=== PATIENT | male | born 1990 | race Caucasian/White ===

== ENCOUNTER 2020-01-22 08:20 | Emergency (ER) | payer MEDICAID, OTHER ==
[2020-01-22] MEDS ORDERED: Aspirin 81 MG Tab.Chew PO ONE (08:47)
--- NOTE | 2020-01-22 08:49 | EDM.PDOC ---
ED HPI GENERAL MEDICAL PROBLEM - General Chief Complaint: General Stated Complaint: CHEST PAIN Time Seen by Provider: 01/22/20 08:50 Source of Information: Reports: Patient, Old Records, RN History Limitations: Reports: No Limitations - History of Present Illness INITIAL COMMENTS - FREE TEXT/NARRATIVE: 30 yo male here with intermittent fleeting L sided chest pains over the past 10 days. At one point the pain went down his left arm. Sometimes the pain is worse with deep breathing. Not related to exertion. No personal or immediate family with CAD. Quit smoking a few yrs ago and also quit ETOH. No SOB, nausea or diaphoresis. No calf pain or unilateral leg swelling. Called the clinic and was referred to the ED. Has noticed going back even further in time intermittent episodes of heart palpitations with a heart rate up into the 130's. Is currently on no meds. Has eaten within 2 hrs of coming to the ED today. Onset: Sudden Onset Date: 01/12/20 Duration: Intermittent Location: Reports: Chest Quality: Reports: Sharp Severity: Moderate Improves with: Reports: None Worsens with: Reports: Breathing (deep) Context: Reports: Other (See HPI) Associated Symptoms: Reports: Chest Pain. Denies: Cough, Diaphoresis, Fever/Chills, Nausea/Vomiting, Rash, Shortness of Breath, Syncope Treatments [employer] [place]: Reports: Other (see below) (none) - Related Data Allergies Allergy/AdvReac Type Severity Reaction Status Date / Time No Known Allergies Allergy Verified 01/22/20 08:40 Home Meds: Home Meds Meloxicam 15 mg PO DAILY #15 tablet 01/22/20 [Rx] Metoprolol Succinate [Toprol XL 50mg] 50 mg PO BEDTIME #30 tab.er 01/22/20 [Rx] Past Medical History HEENT History: Reports: Other (See Below) Other HEENT History: eustachian tube dysfuction Cardiovascular History: Reports: None Respiratory History: Reports: None Gastrointestinal History: Reports: GERD Other Gastrointestinal History: BLOOD IN STOOL WITH LOWER RECTAL PAIN Genitourinary History: Reports: None Musculoskeletal History: Reports: Fracture, Other (See Below) Other Musculoskeletal History: tendonitis Neurological History: Reports: None Psychiatric History: Reports: Depression, Suicidal Ideation Endocrine/Metabolic History: Reports: None Hematologic History: Reports: None Immunologic History: Reports: None Oncologic (Cancer) History: Reports: None Dermatologic History: Reports: Eczema - Infectious Disease History Infectious Disease History: Reports: None - Past Surgical History HEENT Surgical History: Reports: Naso-Sinus Surgery Social & Family History - Family History Family Medical History: Noncontributory ED ROS GENERAL - Review of Systems Review Of Systems: See Below Constitutional: Reports: No Symptoms HEENT: Reports: No Symptoms Respiratory: Reports: Pleuritic Chest Pain. Denies: Shortness of Breath, Cough, Sputum, Hemoptysis Cardiovascular: Reports: Chest Pain, Palpitations (not related to his intermittent pains). Denies: Claudication, Dyspnea on Exertion, Edema, Lightheadedness, Orthopnea, Syncope GI/Abdominal: Reports: No Symptoms : Reports: No Symptoms Musculoskeletal: Reports: No Symptoms Skin: Reports: No Symptoms Neurological: Reports: No Symptoms Psychiatric: Reports: No Symptoms ED EXAM, GENERAL - Physical Exam Exam: See Below Exam Limited By: No Limitations General Appearance: Alert, WD/WN, No Apparent Distress Eye Exam: Bilateral Eye: Normal Inspection Ears: Normal External Exam, Normal Canal, Hearing Grossly Normal, Normal TMs Ear Exam: Bilateral Ear: Auricle Normal, Canal Normal, TM normal Nose: Normal Inspection, No Blood Throat/Mouth: Normal Inspection, Normal Lips, Normal Oropharynx, Normal Voice, No Airway Compromise Head: Atraumatic, Normocephalic Neck: Normal Inspection Respiratory/Chest: No Respiratory Distress, Lungs Clear, Normal Breath Sounds, No Accessory Muscle Use, Chest Non-Tender Cardiovascular: Regular Rate, Rhythm (92 rate at time of exam), No Edema GI/Abdominal: Soft, Non-Tender, No Distention Back Exam: Normal Inspection. No: CVA Tenderness (R), CVA Tenderness (L) Extremities: Normal Inspection, Normal Range of Motion, Non-Tender, No Pedal Edema. No: Pedal Edema, Leg Pain, Limited Range of Motion Neurological: Alert, Oriented, CN II-XII Intact, Normal Cognition, No Motor/Sensory Deficits Psychiatric: Normal Affect, Normal Mood Skin Exam: Warm, Dry, Intact, Normal Color, No Rash EKG INTERPRETATION EKG Date: 01/22/20 Time: 08:30 Rhythm: NSR Rate (Beats/Min): 103 [place]: LAD-Left [place] Deviation (borderline) P-Wave: Present QRS: Normal ST-T: Normal QT: Normal Comparison: NA - No Prior EKG Course - Vital Signs Last Recorded V/S: Last Vital Signs Temp 36.7 C 01/22/20 08:47 Pulse 88 01/22/20 09:24 Resp 18 01/22/20 09:24 BP 143/91 H 01/22/20 09:24 Pulse Ox 97 01/22/20 09:24 - Orders/Labs/Meds Orders: Active Orders 24 hr Category Date Time Status EKG Documentation Completion [RC] ASDIRECTED Care 01/22/20 08:25 Active Chest 2V [CR] Stat Exams 01/22/20 09:39 Ordered EKG 12 Lead [EK] Routine Ther 01/22/20 08:25 Ordered Labs: Laboratory Tests 01/22/20 01/22/20 01/22/20 Range/Units 08:58 08:58 08:58 D-Dimer, Quantitative < 100 (0.0-400.0) ng/mL Sodium 140 (140-148) mmol/L Potassium 3.7 (3.6-5.2) mmol/L Chloride 102 (100-108) mmol/L Carbon Dioxide 26 (21-32) mmol/L Anion Gap 11.6 (5.0-14.0) mmol/L BUN 11 (7-18) mg/dL Creatinine 1.1 (0.8-1.3) mg/dL Est Cr Clr Drug Dosing 87.81 mL/min Estimated GFR (MDRD) > 60 (>60) Glucose 138 H (74-106) mg/dL Calcium 9.0 (8.5-10.1) mg/dL Troponin I < 0.017 (0.000-0.056) ng/mL Meds: Medications Discontinued Medications Generic Name Dose Route Start Last Admin Trade Name Freq PRN Reason Stop Dose Admin Aspirin 324 mg 01/22/20 08:47 01/22/20 08:53 Aspirin PO 01/22/20 08:48 324 mg ONETIME ONE Administration - Radiology Interpretation Free Text/Narrative:: CXR-neg Departure - Departure Time of Disposition: 10:00 Disposition: Home, Self-Care 01 Condition: Good Clinical Impression: Pleuritic chest pain HTN (hypertension) Qualifiers: Hypertension type: essential hypertension Qualified Code(s): I10 - Essential (primary) hypertension - Discharge Information *PRESCRIPTION DRUG MONITORING PROGRAM REVIEWED*: Not Applicable *COPY OF PRESCRIPTION DRUG MONITORING REPORT IN PATIENT REI: Not Applicable Instructions: Nonspecific Chest Pain, Adult, [id number], Hypertension, Adult Referrals: Bethel Jeffery NP [Primary Care Provider] - Forms: ED Department Discharge Additional Instructions: Avoid salt. Reduce your use of sweets and soda pop. Take metoprolol every day about the same time to lower your BP and to reduce your heart palpitations. Use meloxicam to try to get rid of your chest pains, you may add acetaminophen per package orders for added relief if needed. Recheck in the clinic in about a week. Return here as needed. Sepsis Event Note (ED) - Focused Exam Vital Signs: Vital Signs Temp Pulse Resp BP Pulse Ox 01/22/20 09:24 88 18 143/91 H 97 01/22/20 08:50 88 21 H 138/84 96 01/22/20 08:47 36.7 C 99 21 H 144/88 H 98 01/22/20 08:40 36.7 C 99 21 H 144/88 H 98 - My Orders Last 24 Hours: My Active Orders 01/22/20 08:25 EKG Documentation Completion [RC] ASDIRECTED EKG 12 Lead [EK] Routine 01/22/20 09:39 Chest 2V [CR] Stat - Assessment/Plan Last 24 Hours: My Active Orders 01/22/20 08:25 EKG Documentation Completion [RC] ASDIRECTED EKG 12 Lead [EK] Routine 01/22/20 09:39 Chest 2V [CR] Stat
[2020-01-22 09:56] VITALS: BP 132/81; PULSE 74
--- NOTE | 2020-01-22 10:09 | CR ---
CHEST: 2 view CLINICAL HISTORY:Left-sided chest pain COMPARISON:None FINDINGS: The heart size, pulmonary vascularity and hilar structures are normal. No infiltrate effusion or pneumothorax is seen. IMPRESSION: No acute cardiopulmonary process.
== END 2020-01-22 10:04 | disposition home or self-care (01) ==
LOC: JP.ED 08:20
DX: R07.81 Pleurodynia (principal); I10 Essential (primary) hypertension; Z87.891 Personal history of nicotine dependence
CPT/HCPCS: 36415; 71046; 80048; 84484; 85379; 93005; 99285; A9270; 93010

== ENCOUNTER 2023-07-22 10:26 | Emergency (ER) | payer SELFPAY ==
[2023-07-22 10:42] VITALS: BP 145/91; PULSE 87
[2023-07-22] MEDS ORDERED: Sodium Chloride 0.9% 80 ML IV ONE (11:18)
[2023-07-22] MEDS ORDERED: Sodium Chloride 0.9% 10 ML Syringe FLUSH PRN (11:18)
[2023-07-22] MEDS ORDERED: Iopamidol 612 MG/ML 100 ML Bottle IV PRN (11:18)
[2023-07-22] MEDS: Sodium Chloride 0.9% 75 ML IV ONE (11:51)
[2023-07-22] MEDS: Sodium Chloride 0.9% 10 ML Syringe FLUSH PRN (11:52)
[2023-07-22] MEDS: Iopamidol 612 MG/ML 100 ML Bottle IV PRN (11:52)
== END 2023-07-22 13:24 | disposition home or self-care (01) ==
LOC: JP.ED 10:26
DX: K56.7 Ileus, unspecified (principal); I10 Essential (primary) hypertension; Z86.16 Personal history of COVID-19
CPT/HCPCS: 74177; 99284; J3490; Q9967